=== PATIENT | male | born 1940 | race Caucasian/White ===

== ENCOUNTER 2024-07-18 07:45 | Inpatient (IN) | payer MEDICARE, SELFPAY ==
[2024-07-18] VITALS (11 sets, daily range): BP systolic 100–119; BP diastolic 44–59; PULSE 60–73; RESP 14–20; TEMP 36.7–37.1; O2SAT 93–99; BMI 29.8
--- NOTE | ~2024-07-18 | XR_ITS ---
EXAMINATION: XR chest 1V portable DATE: 07/18/2024 10:06 INDICATION: Cough and cholecystitis TECHNIQUE: frontal view of the chest was obtained. COMPARISON: None FINDINGS: There are few scattered bilateral calcified pulmonary nodules consistent with old granulomatous disea se. Mild bibasilar opacities which appears to include a very small right pleural effusion. No pneumot horax. The cardiomediastinal silhouette is within normal limits for AP technique. T6-T12 posterior sp inal fusion with bilateral vertical bryan and pedicle screw fixation. IMPRESSION: 1. Mild bibasilar opacities which could represent atelectasis or pneumonia with very small right pleu ral effusion. Reviewed, dictated and finalized at location A. IMPRESSION: 1. Mild bibasilar opacities which could represent atelectasis or pneumonia with very small right pleural effusion.
--- NOTE | ~2024-07-18 | MR_ITS ---
EXAMINATION: MR MRCP wo/w con/w 3D wo ind DATE: 07/20/2024 09:24 INDICATION: Cholecystitis TECHNIQUE: Magnetic resonance imaging (MRI) of the abdomen was performed without intravenous contrast . Sequences included coronal T2-weighted SS-FSE, coronal T2-weighted FS SS-FSE, coronal T2-weighted F S FIESTA, axial T2-weighted FS FIESTA, axial T2-weighted FIESTA, sagittal T2-weighted SS-FSE, axial T 1-weighted dual-echo FSPGR, axial T2-weighted SS-FSE, axial T1-weighted LAVA, axial T2-weighted STIR FSE. Thick-slab T2-weighted FRFSE-XL images were obtained for magnetic resonance cholangiopancreatogr aphy (MRCP). Rotating maximum intensity projection 3-D reconstructions of the volumetric data were cr eated by the technologist. COMPARISON: CT dated 07/18/2024 FINDINGS: ABDOMEN MRI: Heart size is normal. No pericardial effusion. Small right and tiny left pleural effusions with assoc iated dependent consolidation likely related to atelectasis in both lower lobes. Liver, pancreas, jessica ateral adrenal glands and kidneys are normal. There are several mildly T2 hyperintense lesions scatte red throughout the spleen the largest measuring 2.0 cm. The 2 largest demonstrate very slow progressi ve enhancement on the postcontrast imaging with the smaller lesions remaining without enhancement thr ough 5 minutes of imaging most consistent with hemangiomas. Multiple small low signal intensity galls tones within the gallbladder which demonstrates prominent wall thickening but which is now decompress ed post recent of a percutaneous cholecystostomy tube which is subtly visible on the dual echo sequen gasper. Visualized portions of bowels are unremarkable. Bladder is normal. No pathologically enlarged ab dominal or pelvic lymphadenopathy. Moderate lumbar spondylosis. There is metallic magnetic field saumya fact associated with the bilateral vertical bryan and pedicle screw fixation for a T6-T12 posterior spi nal fusion. ABDOMEN MRCP: No intra or extra hepatic ductal or ductal dilation. The common bile duct measures up to 3 mm in maxi mal diameter which is normal with no evident filling defects to suggest choledocholithiasis. IMPRESSION: 1. Cholelithiasis and diffuse gallbladder wall thickening consistent with acute cholecystitis with de crease in the degree of gallbladder distention following interval cholecystostomy tube placement. 2. No intra-axial hepatic Doppler evaluation or evident choledocholithiasis. 3. Small right and very small left pleural effusions. Reviewed, dictated and finalized at location A. IMPRESSION: 1. Cholelithiasis and diffuse gallbladder wall thickening consistent with acute cholecystitis with decrease in the degree of gallbladder distention following interval cholecystostomy tube placement. 2. No intra-axial hepatic Doppler evaluation or evident choledocholithiasis. 3. Small right and very small left pleural effusions.
--- NOTE | ~2024-07-18 | US_ITS ---
EXAMINATION: US perc cholecystostomy w imag DATE: 07/19/2024 15:02 INDICATION: Acute cholecystitis TECHNIQUE: The procedure including the risks and benefits was discussed with the patient. Risks discu ssed included bleeding including hemorrhage and bile peritonitis. Oral and written consent were obtai vincenzo. The patient was confirmed to be receiving appropriate antibiotic coverage. The skin overlying t he liver and gallbladder was prepped and draped in usual sterile fashion. Anesthetic was administere d with 1% lidocaine subcutaneously. An 8.5 Fr catheter was inserted into the gallbladder by trocar liliana davila. The metal stiffener and trocar needle were removed, and the pigtail tip was locked. Bile was aspirated and sent for culture. The catheter was stitched to the skin with suture. About equipment a nd a sterile dressing were applied. There were no immediate complications. FINDINGS: The gallbladder is dilated with wall thickening consistent with acute cholecystitis. Ultras ound images demonstrate the catheter within the gallbladder. 50 mL mL brown-colored bile was aspirate d. Final images show the formed pigtail catheter tip in the gallbladder. IMPRESSION: 1. Successful ultrasound-guided cholecystostomy tube placement. 2. 50 mL bile was sent for aerobic, anaerobic, and fungal cultures. 3. The catheter will be managed by Dr. Munoz. A catheter cholangiogram may be performed not less than 48 hours after tube placement if clinically indicated to assess cystic duct patency. If cholecystect isauro is not eventually performed and the infectious episode has resolved, the tube may be removed over a guidewire, preferably not less than 3 weeks after placement to allow time for a mature catheter tr act to form to prevent bile leakage and peritonitis. Reviewed, dictated and finalized at location A. IMPRESSION: 1. Successful ultrasound-guided cholecystostomy tube placement. 2. 50 mL bile was sent for aerobic, anaerobic, and fungal cultures. 3. The catheter will be managed by Dr. Munoz. A catheter cholangiogram may be pe rformed not less than 48 hours after tube placement if clinically indicated to assess cystic duct patency. If cholecystectomy is not eventually performed and the infectious episode has resolved, the tube may be removed over a guidewire, preferably not less than 3 weeks after placement to allow time for a mature ca theter tract to form to prevent bile leakage and peritonitis.
--- NOTE | ~2024-07-18 | US_ITS ---
EXAMINATION: US abdomen limited DATE: 07/18/2024 19:31 INDICATION: Acute cholecystitis. TECHNIQUE: Multiple grayscale and Doppler ultrasound images of the abdomen were obtained. COMPARISON: Chest CT 07/18/2024 FINDINGS: The visualized portions of the head, body, and tail of the pancreas are normal. The liver i s normal without focal lesion. There is normal flow in main portal vein. The gallbladder is distended and contains gallstones. Gallbladder wall thickening is noted. The common duct is normal and measure s 3 mm. IMPRESSION: 1. Acute cholecystitis. Reviewed, dictated and finalized at location A. IMPRESSION: 1. Acute cholecystitis.
--- NOTE | ~2024-07-18 | CT_ITS ---
EXAMINATION:CT diagnostic chest wo con DATE: 07/18/2024 17:28 INDICATION: Pneumonia. TECHNIQUE: Computed tomography (CT) of the chest was performed without intravenous contrast. Automate d exposure control and iterative reconstruction technique were employed. The dose-length product (DLP ) was 554.50 mGy-cm. COMPARISON: Chest single view 07/18/2024, CT abdomen and pelvis 07/17/2024 FINDINGS: Calcified pulmonary nodules and calcified hilar and mediastinal lymph nodes are consistent with old granulomatous disease. There are airspace opacities in right lower lobe. There is a small ri ght pleural effusion with pleural thickening. Cardiomegaly is noted. There are coronary artery calcif ications. No pericardial effusion. There is bilateral gynecomastia. The gallbladder is distended cont ains gallstones. There is fat stranding around the gallbladder. There are changes of posterior fusion procedure in thoracic spine. There are bridging endplate osteophytes at multiple levels in the spine , consistent with diffuse idiopathic skeletal hyperostosis (DISH). IMPRESSION: 1. Airspace opacities in right lower lobe, consistent with atelectasis versus pneumonia. 2. Small right pleural effusion with pleural thickening, likely an exudate. 3. Acute cholecystitis. Reviewed, dictated and finalized at location A. IMPRESSION: 1. Airspace opacities in right lower lobe, consistent with atelectasis versus p neumonia. 2. Small right pleural effusion with pleural thickening, likely an exudate. 3. Acute cholecystitis.
--- NOTE | ~2024-07-18 | XR_ITS ---
CHEST RADIOGRAPH CLINICAL HISTORY: Poor lung sounds, loose cough . COMPARISON: 07/18/2024 TECHNIQUE: Single portable view of the chest. FINDINGS The cardiomediastinal silhouette is partially obscured. Bilateral pleural effusions with adjacent compressive atelectasis, minimally increased from prior li ging, left greater than right. Calcified granulomas within the bilateral lung thornton, unchanged. Fixation hardware within the thoracic spine. IMPRESSION: Bilateral pleural effusions with adjacent compressive atelectasis, minimally increased from prior li ging. No focal infiltrate. Reviewed, dictated and finalized at location A. IMPRESSION: Bilateral pleural effusions with adjacent compressive atelectasis, minimally in creased from prior imaging. No focal infiltrate.
--- NOTE | 2024-07-18 07:43 | ADMGEN ---
This patient, Valentino Haro, was admitted to IMU Room 201-01. Patient/family oriented to hospital policies and general routines including ID bracelet, bed and alarms, visiting hours, pain management, procedures, bathroom and other care routines, personal items, smoking policy, room service/diet, and visiting hours. Information on how to activate the Rapid Response Team has been discussed. Patient/Family are encouraged to report perceived risks to care and to ask questions if they do not understand what they are told or what they should do.
[2024-07-18 10:34] LABS: Hematocrit 38.9 % (42.0-52.0); Hemoglobin 12.4 g/dL (14.0-18.0); Mean Corpuscular HGB Conc 31.9 g/dl (32-36); Mean Corpuscular Hemoglobin 33.1 pg (26-34); Mean Corpuscular Volume 103.7 fl (80-100); Mean Platelet Volume 11.5 fl (7.4-10.4); Platelet Count Result 153 k/mm3 (150-375); Red Blood Count 3.75 M/mm3 (4.6-6.20); Red Cell Distribution Width 14.1 % (11.5-14.5); White Blood Count 12.9 K/mm3 (4.5-10.0)
[2024-07-18 10:45] LABS: Lactic Acid Reflex 3.2 mmol/L (0.7-2.0)
[2024-07-18 10:55] LABS: Albumin Level 3.3 g/dL (3.5-5.1); Alkaline Phosphatase 152 U/L (38-126); Anion Gap 9 mmol/L (4-12); Aspartate Amino Transferase 593 U/L (17-59); Bilirubin,Total 5.2 mg/dL (0.2-1.3); Blood Urea Nitrogen 16 mg/dL (9-20); Calcium 8.5 mg/dL (8.4-10.2); Carbon Dioxide 25 mmol/L (22-30); Chloride 99 mmol/L (98-107); Estimated Glomerular Filt Rate > 60; Glucose 191 mg/dL (65-110); Magnesium 1.9 mg/dL (1.6-2.3); Potassium 4.8 mmol/L (3.4-5.0); Sodium 133 mmol/L (137-145)
[2024-07-18 11:08] LABS: Alanine Aminotransferase 315 U/L (6-50)
[2024-07-18 11:20] LABS: Band Neutrophils Percent 12 % (0-6); Lymphocytes Absolute Manual 0.38 K/mm3 (1.1-4.5); Lymphocytes Percent Manual 3 % (18-44); Monocytes Absolute Manual 1.16 K/mm3 (0.1-0.90); Monocytes Percent Manual 9 % (3-9); Neutrophils Absolute Manual 11.35 K/mm3 (1.3-6.7); Neutrophils Percent Manual 76 % (46-73); Total Cells Counted 100
[2024-07-18 11:21] LABS: Macrocytosis 1+ (NORMAL); Platelet Estimate Adequate (Adequate); Schistocytes None Seen
[2024-07-18] MEDS: SODIUM CHLORIDE 0.9% IV 1,000 ML 75 ML IV CONT (11:31)
[2024-07-18 12:03] LABS: Glucose Point of Care 180 mg/dl (65-105)
[2024-07-18] MEDS: PIPERACILLN/TAZ 3.375GM/NS50ML 3.375 GM/50 ML BAG IVPB ×2 (12:30→16:53)
[2024-07-18 13:31] LABS: Reflex Lactic Acid Yes or No Add Lactic
[2024-07-18 14:19] LABS: Lactic Acid 2.4 mmol/L (0.7-2.0)
--- NOTE | 2024-07-18 15:43 | PM.IMHP ---
H&P: HPI History of Present Illness Date/Time: 07/18/24 15:43 Chief Complaint: abdominal pain Narrative: 84-year-old male past medical history of type 2 diabetes, hypertension, atrial fibrillation, CHF, transferred from another facility on account of acute cholecystitis. Patient was lethargic at the time of this encounter unable to provide a history, but are present and patient started having abdominal pain on Sunday and presented to an outside ER where they evaluated him and sent him home on pain medications. Last night abdominal pain worsened prompting presentation to the ER for proper evaluation and care. evaluation of the transferring facility noted worsening acute cholecystitis patient was given antibiotics transferred to our facility for higher level of care. Patient was lethargic unable to provide review of systems however did note right upper quadrant pain. Review of Systems Review of Systems: Unable to do review of systems due to Lethargy PMFSH Past Medical History Medical History (Updated 07/18/24 @ 15:49 by Rich Rios MD) Type 2 diabetes mellitus without complications Social History Social History Smoking status: Never smoker Alcohol intake: never Substance use: never Substance use type: does not use Do You Feel Safe in your Home?: Yes Lack of Transportation: No Lack of Food: Never True Current Housing: I Have Housing Concerned About Future Housing: Decline to Answer Difficulty Paying Gas/Electric Bills: Decline to Answer Difficulty Paying for Meds: Decline to Answer Currently Unemployed: Decline to Answer Education: Decline to Answer Difficulty w/ Childcare or Family Care: Decline to Answer Spiritual care concerns: No Meds Home Medications and Allergies Home Medications Medication Instructions Recorded Confirmed Type acetaminophen 325 mg tablet (Mapap 650 mg PO Q6H 30 days #240 tabs 07/04/23 07/18/24 Rx (acetaminophen)) losartan 25 mg tablet 50 mg PO DAILY 30 days #60 tabs 07/04/23 07/18/24 Rx pantoprazole 40 mg tablet,delayed 40 mg PO QAM 30 days #30 tabs 07/04/23 07/18/24 Rx release albuterol sulfate 90 mcg/actuation 2 puff inhalation Q6H PRN Wheezing 07/18/24 07/18/24 History aerosol inhaler blood sugar diagnostic (FreeStyle 07/18/24 07/18/24 History Lite Strips) cholecalciferol (vitamin D3) 50 50 mcg PO DAILY 07/18/24 07/18/24 History mcg (2,000 unit) capsule empagliflozin 25 mg tablet 25 mg PO DAILY 07/18/24 07/18/24 History (Jardiance) fluticasone propionate 50 2 spray intranasal DAILY 07/18/24 07/18/24 History mcg/actuation nasal spray,suspension insulin human U-100 NPH-regulr 10 unit subcut Q12H 07/18/24 07/18/24 History 70-30 mix 100 unit/mL subcutaneous susp (Humulin 70/30 U-100 Insulin) ipratropium 0.5 mg-albuterol 3 mg 3 ml inhalation Q6H PRN Shortness 07/18/24 07/18/24 History (2.5 mg base)/3 mL nebulization Of Breath Or Wheezing soln lancets 28 gauge (FreeStyle 07/18/24 07/18/24 History Lancets) metoprolol succinate 25 mg 25 mg PO DAILY 07/18/24 07/18/24 History tablet,extended release 24 hr rivaroxaban 20 mg tablet (Xarelto) 20 mg PO DAILY 07/18/24 07/18/24 History Allergies Allergy/AdvReac Type Severity Reaction Status Date / Time amiodarone Allergy Unknown Verified 07/18/24 09:34 atorvastatin [From Lipitor] Allergy Unknown Verified 07/18/24 09:34 azithromycin Allergy Unknown Verified 07/18/24 09:34 pravastatin Allergy Unknown Verified 07/18/24 09:34 rosuvastatin Allergy Unknown Verified 07/18/24 09:34 Vital Signs Vital Signs - 24 hr 07/18/24 09:00 07/18/24 08:00 07/18/24 08:00 Temperature 98.7 F Pulse Rate 72 67 Respiratory Rate 14 Blood Pressure 100/49 L Pulse Oximetry 99 Oxygen Delivery Room Air 07/18/24 10:00 07/18/24 12:06 07/18/24 12:00 Temperature 98.6 F Pulse Rate 66 60 63 Res
[2024-07-18 18:00] LABS: Glucose Point of Care 156 mg/dl (65-105)
--- NOTE | 2024-07-18 18:17 | PM.IMHP ---
H&P: HPI History of Present Illness Date/Time: 07/18/24 18:17 Chief Complaint: Acute cholecystitis secondary to cholelithiasis Narrative: Patient is a 84-year-old gentleman who was transferred from outside hospital to [facility] because diagnosis of acute cholecystitis secondary cholelithiasis and need for higher level of surgical evaluation and care. Patient apparently brought to the emergency room because he was having weakness and worsening abdominal pain. Imaging at the outside hospital with a CT scan seemed to show acute cholecystitis secondary to cholelithiasis. There is stranding and pericholecystic inflammation. Patient was transferred [facility] and accepted by the hospitalist service. Patient had elevated LFTs and an elevated total bilirubin of 5.2. CT scan of the chest was done [facility] today which showed dilated gallbladder with thickening of the gallbladder wall and pericholecystic stranding the tissues around the gallbladder. The patient is in general poor health. He does have some dementia but does answer some questions. He is able to tell me that he does have pain in the right upper quadrant of the abdomen. Patient is a DNR. He takes Xarelto and his states that his last dosage of Xarelto was yesterday. He has insulin-dependent diabetes mellitus and hypertension and atrial fibrillation. Review of Systems Review of Systems: The remainder of the review of systems to include constitutional, HEENT, cardiovascular, respiratory, GI, , integumentary, musculoskeletal, endocrine, immunologic, hematologic, psychiatric, and neurologic are all negative except for which is mentioned above in the HPI. [facility] Past Medical History Medical History Type 2 diabetes mellitus without complications Social History Social History Smoking status: Never smoker Alcohol intake: never Substance use: never Substance use type: does not use Do You Feel Safe in your Home?: Yes Lack of Transportation: No Lack of Food: Never True Current Housing: I Have Housing Concerned About Future Housing: Decline to Answer Difficulty Paying Gas/Electric Bills: Decline to Answer Difficulty Paying for Meds: Decline to Answer Currently Unemployed: Decline to Answer Education: Decline to Answer Difficulty w/ Childcare or Family Care: Decline to Answer Spiritual care concerns: No Meds Home Medications and Allergies Home Medications Medication Instructions Recorded Confirmed Type acetaminophen 325 mg tablet (Mapap 650 mg PO Q6H 30 days #240 tabs 07/04/23 07/18/24 Rx (acetaminophen)) losartan 25 mg tablet 50 mg PO DAILY 30 days #60 tabs 07/04/23 07/18/24 Rx pantoprazole 40 mg tablet,delayed 40 mg PO QAM 30 days #30 tabs 07/04/23 07/18/24 Rx release albuterol sulfate 90 mcg/actuation 2 puff inhalation Q6H PRN Wheezing 07/18/24 07/18/24 History aerosol inhaler blood sugar diagnostic (FreeStyle 07/18/24 07/18/24 History Lite Strips) cholecalciferol (vitamin D3) 50 50 mcg PO DAILY 07/18/24 07/18/24 History mcg (2,000 unit) capsule empagliflozin 25 mg tablet 25 mg PO DAILY 07/18/24 07/18/24 History (Jardiance) fluticasone propionate 50 2 spray intranasal DAILY 07/18/24 07/18/24 History mcg/actuation nasal spray,suspension insulin human U-100 NPH-regulr 10 unit subcut Q12H 07/18/24 07/18/24 History 70-30 mix 100 unit/mL subcutaneous susp (Humulin 70/30 U-100 Insulin) ipratropium 0.5 mg-albuterol 3 mg 3 ml inhalation Q6H PRN Shortness 07/18/24 07/18/24 History (2.5 mg base)/3 mL nebulization Of Breath Or Wheezing soln lancets 28 gauge (FreeStyle 07/18/24 07/18/24 History Lancets) metoprolol succinate 25 mg 25 mg PO DAILY 07/18/24 07/18/24 History tablet,extended release 24 hr rivaroxaban 20 mg tablet (Xarelto) 20 mg PO DAILY 07/18/24 07/18/24
[2024-07-18 18:56] LABS: Troponin I 0.089 ng/mL (0.000-0.034)
[2024-07-18 19:02] LABS: NT Pro B Type Natriuretic Pept 4760 pg/mL (19.9-100)
[2024-07-18 21:17] LABS: Troponin I 0.088 ng/mL (0.000-0.034)
[2024-07-18] MEDS: MORPHINE SULFATE (*CRX) 2 MG/ML INJ IV PUSH (21:28)
[2024-07-19] VITALS (13 sets, daily range): BP systolic 116–137; BP diastolic 49–63; PULSE 58–76; RESP 16–20; TEMP 36.3–37.2; O2SAT 95–97
[2024-07-19] MEDS: PIPERACILLN/TAZ 3.375GM/NS50ML 3.375 GM/50 ML BAG IVPB ×4 (00:06→18:05)
[2024-07-19 00:09] LABS: Glucose Point of Care 153 mg/dl (65-105)
[2024-07-19 01:40] LABS: Troponin I 0.071 ng/mL (0.000-0.034)
[2024-07-19 04:44] LABS: Hematocrit 37.5 % (42.0-52.0); Hemoglobin 12.3 g/dL (14.0-18.0); Mean Corpuscular HGB Conc 32.8 g/dl (32-36); Mean Corpuscular Hemoglobin 33.8 pg (26-34); Platelet Count Result 130 k/mm3 (150-375); Red Blood Count 3.64 M/mm3 (4.6-6.20); Red Cell Distribution Width 14.4 % (11.5-14.5); White Blood Count 7.9 K/mm3 (4.5-10.0)
[2024-07-19 04:53] LABS: Lactic Acid Reflex 1.4 mmol/L (0.7-2.0)
[2024-07-19] MEDS: SODIUM CHLORIDE 0.9% IV 1,000 ML 120 ML IV CONT ×3 (04:53→21:33)
[2024-07-19 05:03] LABS: Alanine Aminotransferase 232 U/L (6-50); Albumin Level 3.1 g/dL (3.5-5.1); Alkaline Phosphatase 129 U/L (38-126); Anion Gap 9 mmol/L (4-12); Aspartate Amino Transferase 290 U/L (17-59); Blood Urea Nitrogen 27 mg/dL (9-20); Calcium 8.3 mg/dL (8.4-10.2); Carbon Dioxide 25 mmol/L (22-30); Chloride 102 mmol/L (98-107); Estimated CRCL calculation 59 ml/min; Estimated Glomerular Filt Rate > 60; Glucose 132 mg/dL (65-110); Lipase 18 U/L (23-300); Magnesium 2.2 mg/dL (1.6-2.3); Potassium 4.1 mmol/L (3.4-5.0); Sodium 136 mmol/L (137-145)
[2024-07-19 05:12] LABS: Band Neutrophils Percent 13 % (0-6); Eosinophils Absolute Manual 0.07 K/mm3 (0.02-0.50); Eosinophils Percent Manual 1 % (0-4); Lymphocytes Absolute Manual 0.15 K/mm3 (1.1-4.5); Monocytes Absolute Manual 0.23 K/mm3 (0.1-0.90); Monocytes Percent Manual 3 % (3-9); Neutrophils Absolute Manual 7.42 K/mm3 (1.3-6.7); Neutrophils Percent Manual 81 % (46-73); Total Cells Counted 100
[2024-07-19 05:13] LABS: Burr Cells 1+; Platelet Estimate Slightly Decreased (Adequate); Schistocytes None Seen
[2024-07-19 07:48] LABS: INR 1.8; Prothrombin Time 21.6 Seconds (11.1-14.7)
[2024-07-19 07:49] LABS: Partial Thromboplastin Time 48.2 Seconds (22.3-36.8)
--- NOTE | 2024-07-19 11:45 | WPDPN ---
Progress Note: A&P Assessment and Plan (1) Transaminitis: Code(s): R74.01 - Elevation of levels of liver transaminase levels Status: Acute Assessment and Plan: Liver enzymes are decreasing. Total bilirubin is still 5.0. Common bile duct is normal on the abdominal ultrasound and no retained common bile stone is seen on the CT scan. Patient will probably benefit from having MRCP performed after gallbladder has been decompressed from the cholecystostomy tube placement. Gastroenterology consultation is pending. (2) Acute cholecystitis: Code(s): K81.0 - Acute cholecystitis Status: Acute Assessment and Plan: Patient white blood cell count is decreased down to about 8000 today. Continues on Zosyn for IV antibiotics. Pain is about the same he does have generalized peritoneal signs. No fever or tachycardia or hypotension to should suggest sepsis. He is scheduled to have a ultrasound-guided percutaneous cholecystostomy tube placement today in Radiology. It should decompress this gallbladder and hopefully getting the feeling better. Has possible pneumonia on CT of the chest he is on Xarelto for atrial fibrillation. INR is 1.8 today. For now decompression was gallbladder is indicated and possibly think about and cholecystectomy in the future. Continue supportive management and IV antibiotics. Once he has the cystostomy tube in place his pain is better then we can start on clear liquids. Subjective Date/time seen: 07/19/24 11:45 Interval history: Patient without acute changes overnight. Still having right upper quadrant abdominal pain. No nausea or vomiting. No fever no tachycardia. Is still NPO. Abdominal ultrasound done last evening shows thickening of the gallbladder wall with pericholecystic fluid and gallstones consistent with acute cholecystitis. That is concordant with the CT scan findings and his clinical picture. Liver enzymes today are decreasing. Total bilirubin is 5 today down from 5.4 yesterday. GI consultation has been requested and is pending. Exam GI: Other: Abdomen is soft and nondistended. He has moderate pain with some guarding in the right upper quadrant. Gallbladder is not palpable. No generalized peritoneal signs. Objective Data Vital Signs Vital Signs: Vital Signs - 24 hr 07/18/24 12:06 07/18/24 12:00 07/18/24 12:00 Temperature 37.0 C Pulse Rate 60 63 Respiratory Rate 14 Blood Pressure 114/44 L Pulse Oximetry 96 Oxygen Delivery Room Air 07/18/24 14:00 07/18/24 16:00 07/18/24 16:00 Temperature 36.9 C Pulse Rate 68 69 66 Respiratory Rate 14 Blood Pressure 113/45 L Pulse Oximetry 96 Oxygen Delivery 07/18/24 18:00 07/18/24 16:00 07/18/24 19:49 Temperature 36.8 C Pulse Rate 71 73 Respiratory Rate 16 Blood Pressure 113/59 L Pulse Oximetry 95 Oxygen Delivery Room Air 07/18/24 20:00 07/18/24 20:00 07/18/24 22:00 Temperature Pulse Rate 70 72 Respiratory Rate Blood Pressure Pulse Oximetry Oxygen Delivery Room Air 07/18/24 23:56 07/19/24 00:00 07/19/24 00:00 Temperature 36.7 C Pulse Rate 68 68 Respiratory Rate 20 Blood Pressure 119/45 L Pulse Oximetry 93 Oxygen Delivery Room Air 07/19/24 02:00 07/19/24 04:00 07/19/24 04:00 Temperature 37.2 C Pulse Rate 74 76 72 Respiratory Rate 16 Blood Pressure 137/63 Pulse Oximetry 95 Oxygen Delivery 07/19/24 04:00 07/19/24 06:00 07/19/24 07:50 Temperature 36.7 C Pulse Rate 70 72 Respiratory Rate 19 Blood Pressure 125/52 L Pulse Oximetry 96 Oxygen Delivery Room Air Intake/Output Intake/Output: Intake & Output 07/16/24 07/17/24 07/18/24 07/19/24 23:59 23:59 23:59 23:59 Intake Total 1100.0 100 Output Total 500 550 Balance 600.0 -450 Meds/Results Medications: Active Medications Generic Name Dose Route Start Last Admin Trade Name Freq PRN Reason Stop Dose Admin Dextro
--- NOTE | 2024-07-19 12:35 | PM.IMPN ---
Progress Note: A&P Assessment and Plan (1) Acute cholecystitis: Code(s): K81.0 - Acute cholecystitis Status: Acute Plan Acute cholecystitis Imaging from outside hospital reviewed Blood culture, start Zosyn, IV fluid lactic acid resolved NPO, general surgery consulted. Elevated liver anzymes, improving AST 290 from 593, ALT 232 from 315, Bilirubin 5.0 from 5.[address] AP negative for CBD dilatation MRCP recommended by surgery GI consulted , monitor RLL Pneumonia CT Chest showed RLL pneumonia F/u with blood culture Continue Zosyn Follow-up closely Type 2 diabetes Sliding scale insulin with Accu-Cheks Adjust clinical course Atrial fibrillation Hold anticoagulation and titrate home meds with clinical course CHF Titrate medication or clinical course Hypertension Title medication on clinical course DVT prophylaxis subQ Lovenox patient is a DNR Surrogate decisionmaker is . Subjective Date/time seen: 07/19/24 12:35 Interval history: Gen surgery planning percutaneous drainage of gall bladder NO CBD dilation from Imaging studies Gi consulted for possibel MRCP Review of Systems Review of Systems: Unable to do review of systems due to Lethargy Exam Narrative: General: lethargic Eyes: EOMI, PERRLA ENNT External ears normal, Neck is supple, no masses, Respiratory systems: Clear to auscultation Cardiovascular S1, S2, normal rhythm, no murmur, rub, or gallop; no thrill or palpable murmurs on palpation. Gastrointestinal: soft, and non-distended abdomen with no masses; right upper quadrant tenderness. BS present Skin: no rash, lesions, ulcerations, subcutaneous nodules or induration Musculoskeletal: no abnormality and no tenderness, normal ROM Neurologic: Alert and oriented x3, non focal Mental Status Exam: normal affect Objective Data Vital Signs Vital Signs: Vital Signs - 24 hr 07/18/24 14:00 07/18/24 16:00 07/18/24 16:00 Temperature 98.4 F Pulse Rate 68 69 66 Respiratory Rate 14 Blood Pressure 113/45 L Pulse Oximetry 96 Oxygen Delivery 07/18/24 18:00 07/18/24 16:00 07/18/24 19:49 Temperature 98.2 F Pulse Rate 71 73 Respiratory Rate 16 Blood Pressure 113/59 L Pulse Oximetry 95 Oxygen Delivery Room Air 07/18/24 20:00 07/18/24 20:00 07/18/24 22:00 Temperature Pulse Rate 70 72 Respiratory Rate Blood Pressure Pulse Oximetry Oxygen Delivery Room Air 07/18/24 23:56 07/19/24 00:00 07/19/24 00:00 Temperature 98.1 F Pulse Rate 68 68 Respiratory Rate 20 Blood Pressure 119/45 L Pulse Oximetry 93 Oxygen Delivery Room Air 07/19/24 02:00 07/19/24 04:00 07/19/24 04:00 Temperature 99 F Pulse Rate 74 76 72 Respiratory Rate 16 Blood Pressure 137/63 Pulse Oximetry 95 Oxygen Delivery 07/19/24 04:00 07/19/24 06:00 07/19/24 07:50 Temperature 98.1 F Pulse Rate 70 72 Respiratory Rate 19 Blood Pressure 125/52 L Pulse Oximetry 96 Oxygen Delivery Room Air Intake/Output Intake/Output: Intake & Output 07/16/24 07/17/24 07/18/24 07/19/24 23:59 23:59 23:59 23:59 Intake Total 1100.0 100 Output Total 500 550 Balance 600.0 -450 Meds/Results Medications: Active Medications Generic Name Dose Route Start Last Admin Trade Name Freq PRN Reason Stop Dose Admin Dextrose 12.5 gm 07/18/24 15:51 Dextrose 50% 25 Gm/50 Ml Syringe IV PUSH PRN PRN Hypoglycemia Protocol Glucagon 1 mg 07/18/24 15:51 Glucagon For Inj 1 Mg Vial IM PRN PRN Hypoglycemia Protocol Glucose 15 gm 07/18/24 15:51 Glucose Oral Gel 15 Gm Of Glucse In 37.5 Gm Tube PO PRN PRN Hypoglycemia Protocol Sodium Chloride 1,000 mls @ 120 mls/hr 07/18/24 11:05 07/19/24 04:53 Normal Saline Iv IV CONT 120 mls/hr .Q8H20M [place] Administration Piperacillin/Tazobactam/Dextrose 3.375 gm in
[2024-07-19 13:07] LABS: Glucose Point of Care 131 mg/dl (65-105)
--- NOTE | 2024-07-19 16:01 | WPDGICN ---
Assessment and Plan Assessment and plan (1) Acute cholecystitis: Code(s): K81.0 - Acute cholecystitis Status: Acute Assessment and Plan: on iv abx, surgery on board and cholecystostomy tube in place will get mri to assess biliary system trend liver enzymes (2) Elevated liver enzymes: Code(s): R74.8 - Abnormal levels of other serum enzymes Status: Acute Assessment and Plan: get mrcp probably from cholecystitis (3) Atrial fibrillation: Code(s): I48.91 - Unspecified atrial fibrillation Status: Acute Assessment and Plan: xarelto on hold (4) Type 2 diabetes mellitus without complications: Code(s): E11.9 - Type 2 diabetes mellitus without complications Status: Acute (5) Abdominal pain: Code(s): R10.9 - Unspecified abdominal pain Status: Acute GI Consult Note Consult date/time: 07/19/24 16:01 Reason for consult: cholecystitis, elevated liver enzymes HPI: Valentino Haro is a 84 year old male with h/o DM, heart disease on blood thinner transferred to the hospital with new diagnosis of acute cholecystitis after presented at another institution with lethargy, abdominal pain. Also noted elevated liver enzymes with bili 5. He was evaluated by surgery and underwent cholecystostomy tube, he is on antibiotics. His xarelto is on hold, doing better now. Family members at bedside. Review of Systems Constitutional: Constitutional: Reports weakness Eyes: Eyes: Denies blurry vision ENT: Denies nasal congestion Cardiovascular: Cardiovascular: Denies chest pain Respiratory: Respiratory: Denies cough Gastrointestinal: Gastrointestinal: Reports abdominal pain and Reports nausea Genitourinary: Genitourinary: Denies dysuria Musculoskeletal: Musculoskeletal: Denies neck pain Integumentary/Breasts: Skin/Breast: Denies rash Neurologic: Denies Abnormal speech present Psychiatric: Psychiatric: Denies behavioral changes [facility] Past Medical History Medical History (Updated 07/19/24 @ 16:05 by Parish Garcia MD) Abdominal pain Elevated liver enzymes Type 2 diabetes mellitus without complications Social History Social History Smoking status: Never smoker Alcohol intake: never Substance use: never Substance use type: does not use Do You Feel Safe in your Home?: Yes Lack of Transportation: No Lack of Food: Never True Current Housing: I Have Housing Concerned About Future Housing: Decline to Answer Difficulty Paying Gas/Electric Bills: Decline to Answer Difficulty Paying for Meds: Decline to Answer Currently Unemployed: Decline to Answer Education: Decline to Answer Difficulty w/ Childcare or Family Care: Decline to Answer Spiritual care concerns: No Meds Home Medications and Allergies Home Medications Medication Instructions Recorded Confirmed Type acetaminophen 325 mg tablet (Mapap 650 mg PO Q6H 30 days #240 tabs 07/04/23 07/18/24 Rx (acetaminophen)) losartan 25 mg tablet 50 mg PO DAILY 30 days #60 tabs 07/04/23 07/18/24 Rx pantoprazole 40 mg tablet,delayed 40 mg PO QAM 30 days #30 tabs 07/04/23 07/18/24 Rx release albuterol sulfate 90 mcg/actuation 2 puff inhalation Q6H PRN Wheezing 07/18/24 07/18/24 History aerosol inhaler blood sugar diagnostic (FreeStyle 07/18/24 07/18/24 History Lite Strips) cholecalciferol (vitamin D3) 50 50 mcg PO DAILY 07/18/24 07/18/24 History mcg (2,000 unit) capsule empagliflozin 25 mg tablet 25 mg PO DAILY 07/18/24 07/18/24 History (Jardiance) fluticasone propionate 50 2 spray intranasal DAILY 07/18/24 07/18/24 History mcg/actuation nasal spray,suspension insulin human U-100 NPH-regulr 10 unit subcut Q12H 07/18/24 07/18/24 History 70-30 mix 100 unit/mL subcutaneous susp (Humulin 70/30 U-100 Insulin) ipratropium 0.5 mg-albuterol 3 mg 3 ml inhalation Q6H PRN Shortness 10/
[2024-07-19 16:08] LABS: MRSA (PCR) NOT DETECTED (NOT DETECTE)
[2024-07-19 17:59] LABS: Glucose Point of Care 120 mg/dl (65-105)
--- NOTE | 2024-07-19 22:31 | PC.NURSE ---
Return call received from Katarina LOAIZA. ANP made aware of patient compliant of headache and request for Tylenol. OK per Rusty ANP for Tylenol to be ordered.
[2024-07-19 23:41] LABS: Glucose Point of Care 164 mg/dl (65-105)
[2024-07-20] VITALS (18 sets, daily range): BP systolic 128–148; BP diastolic 54–70; PULSE 49–71; RESP 14–20; TEMP 36.2–36.8; O2SAT 94–97
[2024-07-20] MEDS: PIPERACILLN/TAZ 3.375GM/NS50ML 3.375 GM/50 ML BAG IVPB ×5 (00:01→23:38)
[2024-07-20 04:24] LABS: Basophils Percent Auto 0.2 % (0.2-1.2); Eosinophils Absolute Auto 0.1 K/mm3 (0-0.3); Eosinophils Percent Auto 1.7 % (0-4.4); Hematocrit 33.9 % (42.0-52.0); Hemoglobin 11.1 g/dL (14.0-18.0); Immature Granulocyte Absolute 0.02 K/mm3 (0.00-0.031); Immature Granulocyte Percent A 0.3 % (0-0.5); Immature Platelet Fraction Pct 8.9 % (0.9-11.2); Lymphocytes Absolute Auto 0.31 K/mm3 (0.9-3.2); Lymphocytes Percent Auto 5.2 % (18.3-44.2); Mean Corpuscular HGB Conc 32.7 g/dl (32-36); Mean Corpuscular Hemoglobin 33.7 pg (26-34); Mean Platelet Volume 11.7 fl (7.4-10.4); Monocytes Absolute Auto 0.4 K/mm3 (0.1-0.6); Monocytes Percent Auto 6.2 % (2.6-8.5); Neutrophils Absolute Auto 5.2 K/mm3 (1.3-6.7); Neutrophils Percent Auto 86.4 % (45.5-73.1); Platelet Count Result 125 k/mm3 (150-375); Red Blood Count 3.29 M/mm3 (4.6-6.20); Red Cell Distribution Width 14.1 % (11.5-14.5)
[2024-07-20 04:34] LABS: Lactic Acid Reflex 1.1 mmol/L (0.7-2.0)
[2024-07-20 04:35] LABS: Alanine Aminotransferase 155 U/L (6-50); Albumin Level 2.7 g/dL (3.5-5.1); Alkaline Phosphatase 162 U/L (38-126); Anion Gap 10 mmol/L (4-12); Aspartate Amino Transferase 132 U/L (17-59); Bilirubin,Total 4.3 mg/dL (0.2-1.3); Blood Urea Nitrogen 21 mg/dL (9-20); Calcium 8.1 mg/dL (8.4-10.2); Carbon Dioxide 21 mmol/L (22-30); Chloride 102 mmol/L (98-107); Estimated CRCL calculation 74 ml/min; Estimated Glomerular Filt Rate > 60; Glucose 142 mg/dL (65-110); Magnesium 2.2 mg/dL (1.6-2.3); Potassium 4.1 mmol/L (3.4-5.0); Sodium 133 mmol/L (137-145)
[2024-07-20] MEDS: SODIUM CHLORIDE 0.9% IV 1,000 ML 120 ML IV CONT (06:01)
[2024-07-20 07:56] LABS: Glucose Point of Care 124 mg/dl (65-105)
[2024-07-20] MEDS: METOPROLOL SUCCINATE EXT REL 25 MG TABCR PO (09:50)
[2024-07-20] MEDS: PANTOPRAZOLE 40 MG TABLET PO (09:51)
--- NOTE | 2024-07-20 10:20 | WPDGIPROGNO ---
Progress Note: A&P Assessment and Plan (1) Acute cholecystitis: Code(s): K81.0 - Acute cholecystitis Status: Acute Assessment and Plan: treated with cholecystostomy tube, surgery on board given abnormal liver enzymes MRCP was ordered to evaluate biliary system on iv abx (2) Elevated liver enzymes: Code(s): R74.8 - Abnormal levels of other serum enzymes Status: Acute Assessment and Plan: bili high but trending down probably from cholecystitis (3) Abdominal pain: Code(s): R10.9 - Unspecified abdominal pain Status: Acute (4) CHF (congestive heart failure): Code(s): I50.9 - Heart failure, unspecified Status: Acute Subjective Date/time seen: 07/20/24 10:20 Interval history: he just returned from [facility], no major events Review of Systems Review of Systems: All systems reviewed & are unremarkable except as noted in HPI and below Exam Const: General: no acute distress Other: more comfortable today HENMT: Face/Nose/Sinus: Normal nares present Eyes: General: appearance normal, both eyes and all related structures Neck: Neck: supple Resp: Auscultation: clear to auscultation bilaterally Cardio: Rate: regular rate Rhythm: regular rhythm GI: Inspection: non-distended GI Palp: Yes Soft to palpation Other: abdomen less tender, cholecystostomy tube in place Skin: General skin exam: no rashes or lesions noted Neuro: Speech: normal speech Other: awake and alert Extrem: General: normal to inspection Psych: Mental Status: mental status grossly normal Objective Data Vital Signs Vital Signs: Vital Signs - 24 hr 07/19/24 12:00 07/19/24 12:00 07/19/24 14:00 Temperature 98.2 F Pulse Rate 73 65 72 Respiratory Rate 19 Blood Pressure 121/53 L Pulse Oximetry 97 Oxygen Delivery 07/19/24 16:00 07/19/24 16:00 07/19/24 12:00 Temperature 97.9 F Pulse Rate 65 69 Respiratory Rate 19 Blood Pressure 128/55 L Pulse Oximetry 97 Oxygen Delivery Room Air 07/19/24 16:00 07/19/24 18:00 07/19/24 20:00 Temperature 97.4 F L Pulse Rate 66 68 Respiratory Rate 20 Blood Pressure 116/49 L Pulse Oximetry 95 Oxygen Delivery Room Air 07/19/24 20:00 07/20/24 00:00 07/19/24 20:00 Temperature 98 F Pulse Rate 68 70 Respiratory Rate 20 Blood Pressure 130/64 Pulse Oximetry 97 Oxygen Delivery Room Air 07/19/24 22:00 07/20/24 00:00 07/20/24 00:00 Temperature Pulse Rate 58 L 71 Respiratory Rate Blood Pressure Pulse Oximetry Oxygen Delivery Room Air 07/20/24 02:00 07/20/24 04:00 07/20/24 04:00 Temperature Pulse Rate 67 66 Respiratory Rate Blood Pressure Pulse Oximetry Oxygen Delivery Room Air 07/20/24 04:00 07/20/24 06:00 07/20/24 07:10 Temperature 98.2 F 98 F Pulse Rate 70 62 64 Respiratory Rate 18 18 Blood Pressure 129/56 L 140/57 L Pulse Oximetry 94 96 Oxygen Delivery 07/20/24 09:50 Temperature Pulse Rate 67 Respiratory Rate Blood Pressure Pulse Oximetry Oxygen Delivery Intake/Output Intake/Output: Intake & Output 07/17/24 07/18/24 07/19/24 07/20/24 23:59 23:59 23:59 23:59 Intake Total 1100.0 2726 1600 Output Total 915 679 1484 Balance 600.0 1776 540 Meds/Results Medications: Active Medications Generic Name Dose Route Start Last Admin Trade Name Freq PRN Reason Stop Dose Admin Dextrose 12.5 gm 07/18/24 15:51 Dextrose 50% 25 Gm/50 Ml Syringe IV PUSH PRN PRN Hypoglycemia Protocol Glucagon 1 mg 07/18/24 15:51 Glucagon For Inj 1 Mg Vial IM PRN PRN Hypoglycemia Protocol Glucose 15 gm 07/18/24 15:51 Glucose Oral Gel 15 Gm Of Glucse In 37.5 Gm Tube PO PRN PRN Hypoglycemia Protocol Sodium Chloride 1,000 mls @ 120 mls/hr 07/18/24 11:05 07/20/24 06:01 Normal Saline Iv IV CONT 120 mls/hr .Q8H20M [facility] Administration Pipe
--- NOTE | 2024-07-20 11:26 | WPDPN ---
Progress Note: A&P Assessment and Plan (1) Transaminitis: Code(s): R74.01 - Elevation of levels of liver transaminase levels Status: Acute Assessment and Plan: Liver enzymes are decreasing. It was also decreasing. MRCP results pending. May have been due to the acute cholecystitis with passage of common bile duct stone. (2) Acute cholecystitis: Code(s): K81.0 - Acute cholecystitis Status: Acute Assessment and Plan: Improving with decompression the gallbladder with image guided cholecystostomy tube placement. Continue IV antibiotics for now. Okay for a diabetic diet as long as they live increasing pain or nausea. Will continue non operative management for the gallbladder at this time. Can have further discussions about interval cholecystectomy in the future depending on his medical status. Subjective Date/time seen: 07/20/24 11:26 Interval history: Seems to be doing better today. He had image guided cholecystostomy tube placed yesterday in Radiology. Bile has been sent for Gram stain and culture. He is tolerating a diabetic diet at this time. States his pain is much better. GI consultation has been done. He got an MRCP this morning to look as bile ducts due to his transaminitis and high bilirubin. Results are pending on the MRCP. His total bilirubin is down to 4 today. Other LFTs are also decreasing. Exam GI: Other: Abdomen is soft and nondistended. Right upper quadrant cholecystostomy tube in place. Dressing is dry. Output from the tube is nonpurulent and bloody bile. Objective Data Vital Signs Vital Signs: Vital Signs - 24 hr 07/19/24 12:00 07/19/24 12:00 07/19/24 14:00 Temperature 36.8 C Pulse Rate 73 65 72 Respiratory Rate 19 Blood Pressure 121/53 L Pulse Oximetry 97 Oxygen Delivery 07/19/24 16:00 07/19/24 16:00 07/19/24 12:00 Temperature 36.6 C Pulse Rate 65 69 Respiratory Rate 19 Blood Pressure 128/55 L Pulse Oximetry 97 Oxygen Delivery Room Air 07/19/24 16:00 07/19/24 18:00 07/19/24 20:00 Temperature 36.3 C L Pulse Rate 66 68 Respiratory Rate 20 Blood Pressure 116/49 L Pulse Oximetry 95 Oxygen Delivery Room Air 07/19/24 20:00 07/20/24 00:00 07/19/24 20:00 Temperature 36.6 C Pulse Rate 68 70 Respiratory Rate 20 Blood Pressure 130/64 Pulse Oximetry 97 Oxygen Delivery Room Air 07/19/24 22:00 07/20/24 00:00 07/20/24 00:00 Temperature Pulse Rate 58 L 71 Respiratory Rate Blood Pressure Pulse Oximetry Oxygen Delivery Room Air 07/20/24 02:00 07/20/24 04:00 07/20/24 04:00 Temperature Pulse Rate 67 66 Respiratory Rate Blood Pressure Pulse Oximetry Oxygen Delivery Room Air 07/20/24 04:00 07/20/24 06:00 07/20/24 07:10 Temperature 36.8 C 36.6 C Pulse Rate 70 62 64 Respiratory Rate 18 18 Blood Pressure 129/56 L 140/57 L Pulse Oximetry 94 96 Oxygen Delivery 07/20/24 09:50 07/20/24 08:00 07/20/24 10:00 Temperature Pulse Rate 67 61 67 Respiratory Rate Blood Pressure Pulse Oximetry Oxygen Delivery 07/20/24 08:00 Temperature Pulse Rate Respiratory Rate Blood Pressure Pulse Oximetry Oxygen Delivery Room Air Intake/Output Intake/Output: Intake & Output 07/17/24 07/18/24 07/19/24 07/20/24 23:59 23:59 23:59 23:59 Intake Total 1100.0 2726 1840 Output Total 062 771 7594 Balance 600.0 1776 780 Meds/Results Medications: Active Medications Generic Name Dose Route Start Last Admin Trade Name Freq PRN Reason Stop Dose Admin Dextrose 12.5 gm 07/18/24 15:51 Dextrose 50% 25 Gm/50 Ml Syringe IV PUSH PRN PRN Hypoglycemia Protocol Glucagon 1 mg 07/18/24 15:51 Glucagon For Inj 1 Mg Vial IM PRN PRN Hypoglycemia Protocol Glucose 15 gm 07/18/24 15:51 Glucose Oral Gel 15 Gm Of Glucse In 37.5 Gm Tube PO PRN PRN Hypoglycemia Protocol So
[2024-07-20 11:48] LABS: Glucose Point of Care 156 mg/dl (65-105)
--- NOTE | 2024-07-20 14:23 | PM.IMPN ---
Progress Note: A&P Assessment and Plan (1) Acute cholecystitis: Code(s): K81.0 - Acute cholecystitis Status: Acute Plan Acute cholecystitis on PERC drainage of gall bladder Blood culture, continue Zosyn lactic acid resolved Gen surgery consulted Elevated liver anzymes,resolving AST 155 from 593, ALT 132 from 315, Bilirubin 4.3from 5.[address] AP negative for CBD dilatation MRCP recommended by surgery GI consulted , monitor RLL Pneumonia CT Chest showed RLL pneumonia F/u with blood culture Continue Zosyn Follow-up closely Type 2 diabetes Sliding scale insulin with Accu-Cheks Adjust clinical course Atrial fibrillation Hold anticoagulation and titrate home meds with clinical course CHF Titrate medication or clinical course Hypertension Title medication on clinical course DVT prophylaxis subQ Lovenox patient is a DNR Surrogate decisionmaker is . Subjective Date/time seen: 07/20/24 14:23 Interval history: Patient comfortable at bedside perc gall bladder drain in palce MRCP pending cultures pending Review of Systems Review of Systems: Unable to do review of systems due to Lethargy Exam Narrative: General: lethargic Eyes: EOMI, PERRLA ENNT External ears normal, Neck is supple, no masses, Respiratory systems: Clear to auscultation Cardiovascular S1, S2, normal rhythm, no murmur, rub, or gallop; no thrill or palpable murmurs on palpation. Gastrointestinal: soft, and non-distended abdomen with no masses; right upper quadrant tenderness resolving . BS present, Perc drain in place Skin: no rash, lesions, ulcerations, subcutaneous nodules or induration Musculoskeletal: no abnormality and no tenderness, normal ROM Neurologic: Alert and oriented x3, non focal Mental Status Exam: normal affect Objective Data Vital Signs Vital Signs: Vital Signs - 24 hr 07/19/24 16:00 07/19/24 16:00 07/19/24 16:00 Temperature 97.9 F Pulse Rate 65 69 Respiratory Rate 19 Blood Pressure 128/55 L Pulse Oximetry 97 Oxygen Delivery Room Air 07/19/24 18:00 07/19/24 20:00 07/19/24 20:00 Temperature 97.4 F L Pulse Rate 66 68 Respiratory Rate 20 Blood Pressure 116/49 L Pulse Oximetry 95 Oxygen Delivery Room Air 07/20/24 00:00 07/19/24 20:00 07/19/24 22:00 Temperature 98 F Pulse Rate 68 70 58 L Respiratory Rate 20 Blood Pressure 130/64 Pulse Oximetry 97 Oxygen Delivery 07/20/24 00:00 07/20/24 00:00 07/20/24 02:00 Temperature Pulse Rate 71 67 Respiratory Rate Blood Pressure Pulse Oximetry Oxygen Delivery Room Air 07/20/24 04:00 07/20/24 04:00 07/20/24 04:00 Temperature 98.2 F Pulse Rate 66 70 Respiratory Rate 18 Blood Pressure 129/56 L Pulse Oximetry 94 Oxygen Delivery Room Air 07/20/24 06:00 07/20/24 07:10 07/20/24 09:50 Temperature 98 F Pulse Rate 62 64 67 Respiratory Rate 18 Blood Pressure 140/57 L Pulse Oximetry 96 Oxygen Delivery 07/20/24 08:00 07/20/24 10:00 07/20/24 08:00 Temperature Pulse Rate 61 67 Respiratory Rate Blood Pressure Pulse Oximetry Oxygen Delivery Room Air 07/20/24 11:33 07/20/24 08:12 07/20/24 12:00 Temperature 98.2 F 98.2 F Pulse Rate 54 L 67 59 L Respiratory Rate 18 20 Blood Pressure 128/54 L 128/62 Pulse Oximetry 97 96 Oxygen Delivery 07/20/24 14:00 07/20/24 12:00 Temperature Pulse Rate 56 L Respiratory Rate Blood Pressure Pulse Oximetry Oxygen Delivery Room Air Intake/Output Intake/Output: Intake & Output 07/17/24 07/18/24 07/19/24 07/20/24 23:59 23:59 23:59 23:59 Intake Total 1100.0 2726 1890 Output Total 395 206 5823 Balance 600.0 1776 430 Meds/Results Medications: Active Medications Generic Name Dose Route Start Last Admin Trade Name Freq PRN Reason Stop Dose Admin Dextrose 12.5 gm 07/18/24 15:51 Dextrose 5
[2024-07-20 17:02] LABS: Glucose Point of Care 123 mg/dl (65-105)
[2024-07-20 20:24] LABS: Glucose Point of Care 147 mg/dl (65-105)
[2024-07-20] MEDS: guaiFENesin/DEXTROMETHORPHAN 10 ML UDC 5 ML PO (20:57)
[2024-07-21] VITALS (17 sets, daily range): BP systolic 133–148; BP diastolic 61–68; PULSE 47–71; RESP 16–24; TEMP 36.3–36.5; O2SAT 96–99
--- NOTE | 2024-07-21 | ECHO_ITS ---
Patient Info Name: Valentino Haro Age: 84 years : 1940 Gender: Male Ht: 71 in Wt: 216 lbs BSA: 2.24 m2 HR: 49 bpm BP: 135 / 61 mmHg Heart Rhythm: Atrial Fibrillation Technical Quality: Fair Exam Date: 07/21/2024 10:53 AM Exam Location: Echo Lab Patient Status: Inpatient Admit Date: 07/20/2024 Staff Ordering Physician: Rich Rios MD E D Tech: Louisa Gaffney MADYSON Attending Provider: Rich Rios MD Exam Type: CA echo doppler color flow Study Info Indications - Elevated Troponins Complete two-dimensional, color flow and Doppler transthoracic echocardiogram is performed. Summary 1. Complete two-dimensional, color flow and Doppler transthoracic echocardiogram is performed. 2. Mild left ventricular hypertrophy with vigorous systolic function. 3. Significant biatrial dilation. 4. Mild mitral and tricuspid regurgitation. 5. Atrial fibrillation. 6. Sclerotic aortic valve with well maintained leaflet separation. Left Ventricle Left ventricular chamber dimension is normal. Left ventricular systolic function is normal, estimated at 65-70%. There is mild concentric increased left ventricular wall thickness. The left ventricular diastolic function is grade I diastolic dysfunction. Right Ventricle Right ventricular chamber dimension is mildly enlarged. Left Atria Left atrial chamber dimension is moderately enlarged. Right Atria Right atrial chamber dimension is moderately enlarged. Aortic Valve The aortic valve is trileaflet. There is mild aortic valve sclerosis. Pulmonic Valve The pulmonic valve is not well visualized. Mitral Valve The mitral valve has normal leaflets. There is trace mitral valve regurgitation. Tricuspid Valve The tricuspid valve leaflets are normal. There is mild tricuspid valve regurgitation. Pericardium/Pleural The pericardium appears normal. Aorta The aortic root size at the sinus of Valsalva is normal. Left Ventricular Outflow Tract Name Value Normal LVOT 2D LVOT Diameter 2.1 cm LVOT Doppler LVOT Peak Gradient 2 mmHg LVOT Mean Gradient 1 mmHg LVOT VTI 14 cm LVOT VTI/AV VTI Ratio 0.4 LVOT Stroke Volume 46 ml LVOT CO 2.4 l/min LVOT CI 1.1 l/min/m2 Pulmonic Valve Name Value Normal PV Doppler PV Peak Gradient 2 mmHg PV Regurgitation Doppler ME Peak End Diastolic Velocity 146 cm/s Mitral Valve Name Value Normal MV Doppler
[2024-07-21 05:35] LABS: Basophils Percent Auto 0.3 % (0.2-1.2); Eosinophils Absolute Auto 0.2 K/mm3 (0-0.3); Eosinophils Percent Auto 3.5 % (0-4.4); Hemoglobin 11.7 g/dL (14.0-18.0); Immature Granulocyte Absolute 0.05 K/mm3 (0.00-0.031); Immature Granulocyte Percent A 0.9 % (0-0.5); Immature Platelet Fraction Pct 9.8 % (0.9-11.2); Lymphocytes Absolute Auto 0.62 K/mm3 (0.9-3.2); Lymphocytes Percent Auto 10.8 % (18.3-44.2); Mean Corpuscular HGB Conc 32.5 g/dl (32-36); Mean Corpuscular Hemoglobin 33.7 pg (26-34); Mean Corpuscular Volume 103.7 fl (80-100); Mean Platelet Volume 11.9 fl (7.4-10.4); Monocytes Absolute Auto 0.4 K/mm3 (0.1-0.6); Monocytes Percent Auto 7.7 % (2.6-8.5); Neutrophils Absolute Auto 4.4 K/mm3 (1.3-6.7); Neutrophils Percent Auto 76.8 % (45.5-73.1); Platelet Count Result 135 k/mm3 (150-375); Red Blood Count 3.47 M/mm3 (4.6-6.20); Red Cell Distribution Width 14.1 % (11.5-14.5); White Blood Count 5.8 K/mm3 (4.5-10.0)
[2024-07-21] MEDS: PIPERACILLN/TAZ 3.375GM/NS50ML 3.375 GM/50 ML BAG IVPB (05:37)
[2024-07-21 05:50] LABS: Alanine Aminotransferase 121 U/L (6-50); Albumin Level 2.9 g/dL (3.5-5.1); Alkaline Phosphatase 190 U/L (38-126); Anion Gap 11 mmol/L (4-12); Aspartate Amino Transferase 80 U/L (17-59); Bilirubin,Total 2.9 mg/dL (0.2-1.3); Blood Urea Nitrogen 18 mg/dL (9-20); Calcium 8.5 mg/dL (8.4-10.2); Carbon Dioxide 21 mmol/L (22-30); Chloride 101 mmol/L (98-107); Estimated CRCL calculation 85 ml/min; Estimated Glomerular Filt Rate > 60; Glucose 114 mg/dL (65-110); Magnesium 2.3 mg/dL (1.6-2.3); Potassium 4.2 mmol/L (3.4-5.0); Sodium 133 mmol/L (137-145)
[2024-07-21 07:35] LABS: Glucose Point of Care 116 mg/dl (65-105)
[2024-07-21] MEDS: PANTOPRAZOLE 40 MG TABLET PO (09:39)
[2024-07-21] MEDS: guaiFENesin/DEXTROMETHORPHAN 10 ML UDC 5 ML PO ×2 (09:40→19:49)
--- NOTE | 2024-07-21 09:56 | PCNFU ---
Nutrition Follow-Up Complete: Inadequate oral intake related to NPO, altered GI function as evidenced by NPO Goal:Diet advancement Improved PO intake when diet is advanced Pt is meeting goal. New goal of 75% or greater intake to continue. Pt current nutrition is Diabetic, Glucerna shakes BID. Nutrition recommendation: continue with current plan of care Last recorded weight is 101 kg. Bowel Motility: +BM 07/20 Labs Reviewed: Hgb:11.7, HCT:36, Alb:2.9, NA:133 Meds Noted: novolog, protonix Skin: no skin issues noted Additional Notes: Pt diet advanced to diabetic consistent carb, intake 100% at this time, Glucerna shakes BID in place. Glucose well controlled. Agree with orders. Monitoring diet orders, weights, labs, intakes, plan of care Follow up in 7 days
[2024-07-21 11:40] LABS: Glucose Point of Care 141 mg/dl (65-105)
[2024-07-21] MEDS: levoFLOXacin 750 MG TABLET PO (12:34)
--- NOTE | 2024-07-21 12:36 | PM.PNGS ---
Progress Note: A&P Assessment and Plan (1) Transaminitis: Code(s): R74.01 - Elevation of levels of liver transaminase levels Status: Acute Assessment and Plan: Liver enzymes trending down with total bilirubin at 2.9 today. MRCP showed no choledocholithiasis. Significant LFT elevation was likely related to the acute cholecystitis with passage of common bile duct stone. (2) Acute cholecystitis: Code(s): K81.0 - Acute cholecystitis Status: Acute Assessment and Plan: Improving with decompression of the gallbladder with image-guided cholecystostomy tube placement. Continue IV antibiotics for now. He is tolerating a diabetic diet without any issues. Will continue non operative management for the gallbladder at this time. Can have further discussions about interval cholecystectomy in the future depending on his medical status. Plan I have discussed the patient's case and plan of care with Dr. Munoz. Subjective Subjective Date/Time Seen: 07/21/24 12:36 Interval history: This is an 84-year-old man who was transferred to [facility] from [place] for acute cholecystitis, elevated LFTs. Chart reviewed. He is status post cholecystostomy tube placement in Radiology. White blood cell count normal. LFTs are trending down. Total bilirubin 2.9 today. MRCP done this morning that shows no choledocholithiasis. Patient continues to improve. He reports no abdominal pain this morning. He is tolerating a diabetic diet. No other complaints at this time. Exam Const: General: comfortable and no acute distress Orientation/consciousness: patient oriented x3 GI: Inspection: non-distended and other (Cholecystostomy tube with normal-appearing bilious drainage, no purulence ) GI Palp: Yes Soft to palpation, Yes Tenderness to palpation present (GI) (Very mild tenderness near the cholecystostomy tube in RUQ), No Guarding due to palpation present (GI) and No Rebound tenderness present Percussion: Yes normal to percussion Auscultation: normal bowel sounds Objective Data Vital Signs Vital Signs: Vital Signs - 24 hr 07/20/24 14:00 07/20/24 16:00 07/20/24 16:00 Temperature 98.2 F Pulse Rate 56 L 51 L 53 L Respiratory Rate 14 Blood Pressure 130/59 L Pulse Oximetry 95 Oxygen Delivery 07/20/24 16:00 07/20/24 18:00 07/20/24 19:51 Temperature 98.2 F Pulse Rate 56 L 50 L Respiratory Rate 18 Blood Pressure 148/63 H Pulse Oximetry 97 Oxygen Delivery Room Air 07/20/24 20:00 07/20/24 23:58 07/21/24 00:00 Temperature 97.2 F L Pulse Rate 49 L Respiratory Rate 16 Blood Pressure 139/70 Pulse Oximetry 97 Oxygen Delivery Room Air Room Air 07/20/24 20:00 07/20/24 22:00 07/21/24 00:00 Temperature Pulse Rate 57 L 54 L 51 L Respiratory Rate Blood Pressure Pulse Oximetry Oxygen Delivery 07/21/24 02:00 07/21/24 04:00 07/21/24 04:00 Temperature 97.4 F L Pulse Rate 56 L 55 L 48 L Respiratory Rate 16 Blood Pressure 135/61 Pulse Oximetry 97 Oxygen Delivery 07/21/24 06:00 07/21/24 04:00 07/21/24 08:11 Temperature 97.3 F L Pulse Rate 49 L 51 L Respiratory Rate 20 Blood Pressure 148/66 H Pulse Oximetry 99 Oxygen Delivery Room Air 07/21/24 09:42 07/21/24 08:00 07/21/24 10:00 Temperature Pulse Rate 47 L 52 L 54 L Respiratory Rate Blood Pressure Pulse Oximetry Oxygen Delivery 07/21/24 11:52 Temperature 97.4 F L Pulse Rate 71 Respiratory Rate 24 H Blood Pressure 133/64 Pulse Oximetry 98 Oxygen Delivery Intake/Output Intake/Output: Intake & Output 07/18/24 07/19/24 07/20/24 07/21/24 23:59 23:59 23:59 23:59 Intake Total 1100.0 2726 2470 680 Output Total 393 156 1959 570 Balance 600.0 1776 920 110 Meds/Results Medications: Active Medications Generic Name Dose Route Start Last Admin Trade Name Freq PRN Reason Stop Dose Admin Dextrose 12.5 gm 07/18/24 15:51 Dextrose
--- NOTE | 2024-07-21 12:52 | PM.IMPN ---
Progress Note: A&P Assessment and Plan (1) Acute cholecystitis: Code(s): K81.0 - Acute cholecystitis Status: Acute Plan Acute cholecystitis on PERC drainage of gall bladder Blood culture, continue Zosyn, changed to levaquin and Flagyl lactic acid resolved tolerating diet Gen surgery noted outpatient follow up for cholecystectomy. Elevated liver enzymes, resolving AST 80 from 593, ALT 121 from 315, Bilirubin 2.9 from 5.[address] AP negative for CBD dilatation MRCP MRCP showed acute cholecystitis and no CBD dilatation GI following RLL Pneumonia CT Chest showed RLL pneumonia F/u with blood culture Continue Levaquin adn Flagyl, total of 7 days Follow-up closely Type 2 diabetes Sliding scale insulin with Accu-Cheks Adjust clinical course Atrial fibrillation restart Anticoagulation and metoprolol CHF Titrate medication or clinical course Hypertension Title medication with clinical course DVT prophylaxis subQ Lovenox patient is a DNR Surrogate decision maker is . Subjective Date/time seen: 07/21/24 12:52 Interval history: Patient comfortable at bedside and Gen surgery noted they will consider Cholecystectomy in the future Now patient is on oral antibiotics and in PErc drainage Evaluating for possible placement from where he will continue follow up with Gen Surgery Review of Systems Review of Systems: Unable to do review of systems due to Lethargy Exam Narrative: General: lethargic Eyes: EOMI, PERRLA ENNT External ears normal, Neck is supple, no masses, Respiratory systems: Clear to auscultation Cardiovascular S1, S2, normal rhythm, no murmur, rub, or gallop; no thrill or palpable murmurs on palpation. Gastrointestinal: soft, and non-distended abdomen with no masses; right upper quadrant tenderness resolving . BS present, Perc drain in place Skin: no rash, lesions, ulcerations, subcutaneous nodules or induration Musculoskeletal: no abnormality and no tenderness, normal ROM Neurologic: Alert and oriented x3, non focal Mental Status Exam: normal affect Objective Data Vital Signs Vital Signs: Vital Signs - 24 hr 07/20/24 14:00 07/20/24 16:00 07/20/24 16:00 Temperature 98.2 F Pulse Rate 56 L 51 L 53 L Respiratory Rate 14 Blood Pressure 130/59 L Pulse Oximetry 95 Oxygen Delivery 07/20/24 16:00 07/20/24 18:00 07/20/24 19:51 Temperature 98.2 F Pulse Rate 56 L 50 L Respiratory Rate 18 Blood Pressure 148/63 H Pulse Oximetry 97 Oxygen Delivery Room Air 07/20/24 20:00 07/20/24 23:58 07/21/24 00:00 Temperature 97.2 F L Pulse Rate 49 L Respiratory Rate 16 Blood Pressure 139/70 Pulse Oximetry 97 Oxygen Delivery Room Air Room Air 07/20/24 20:00 07/20/24 22:00 07/21/24 00:00 Temperature Pulse Rate 57 L 54 L 51 L Respiratory Rate Blood Pressure Pulse Oximetry Oxygen Delivery 07/21/24 02:00 07/21/24 04:00 07/21/24 04:00 Temperature 97.4 F L Pulse Rate 56 L 55 L 48 L Respiratory Rate 16 Blood Pressure 135/61 Pulse Oximetry 97 Oxygen Delivery 07/21/24 06:00 07/21/24 04:00 07/21/24 08:11 Temperature 97.3 F L Pulse Rate 49 L 51 L Respiratory Rate 20 Blood Pressure 148/66 H Pulse Oximetry 99 Oxygen Delivery Room Air 07/21/24 09:42 07/21/24 08:00 07/21/24 10:00 Temperature Pulse Rate 47 L 52 L 54 L Respiratory Rate Blood Pressure Pulse Oximetry Oxygen Delivery 07/21/24 11:52 Temperature 97.4 F L Pulse Rate 71 Respiratory Rate 24 H Blood Pressure 133/64 Pulse Oximetry 98 Oxygen Delivery Intake/Output Intake/Output: Intake & Output 07/18/24 07/19/24 07/20/24 07/21/24 23:59 23:59 23:59 23:59 Intake Total 1100.0 2726 2470 680 Output Total 915 209 5374 570 Balance 600.0 1776 920 110 Meds/Results Medications: Active Medications Generic Name Dose Route Start Last Admin
--- NOTE | 2024-07-21 13:31 | WPDGIPROGNO ---
Progress Note: A&P Assessment and Plan (1) Acute cholecystitis: Code(s): K81.0 - Acute cholecystitis Status: Acute Assessment and Plan: treated with cholecystostomy tube, surgery on board on iv abx mrcp reviewed, normal bile duct, no need of ercp timing of cholecystectomy per surgery team will follow as needed (2) Elevated liver enzymes: Code(s): R74.8 - Abnormal levels of other serum enzymes Status: Acute Assessment and Plan: bili is trending down probably from cholecystitis (3) Abdominal pain: Code(s): R10.9 - Unspecified abdominal pain Status: Acute Assessment and Plan: mild pain, this has improved (4) CHF (congestive heart failure): Code(s): I50.9 - Heart failure, unspecified Status: Acute Subjective Date/time seen: 07/21/24 13:31 Interval history: abdominal pain is similar, he is comfortable Review of Systems Review of Systems: All systems reviewed & are unremarkable except as noted in HPI and below Exam Const: General: comfortable and no acute distress Orientation/consciousness: patient oriented x3 HENMT: Face/Nose/Sinus: Normal nares present Eyes: General: appearance normal, both eyes and all related structures Neck: Neck: supple Resp: Effort & Inspection: normal respiratory effort Cardio: Rate: regular rate GI: Inspection: non-distended and other (Cholecystostomy tube with normal-appearing bilious drainage, no purulence ) GI Palp: Yes Soft to palpation, Yes Tenderness to palpation present (GI) (Very mild tenderness near the cholecystostomy tube in RUQ), No Guarding due to palpation present (GI) and No Rebound tenderness present Percussion: Yes normal to percussion Auscultation: normal bowel sounds Skin: General skin exam: no rashes or lesions noted Neuro: Speech: normal speech Motor exam (neuro): 5/5 motor strength present throughout Extrem: General: normal to inspection Psych: Mental Status: mental status grossly normal Objective Data Vital Signs Vital Signs: Vital Signs - 24 hr 07/20/24 14:00 07/20/24 16:00 07/20/24 16:00 Temperature 98.2 F Pulse Rate 56 L 51 L 53 L Respiratory Rate 14 Blood Pressure 130/59 L Pulse Oximetry 95 Oxygen Delivery 07/20/24 16:00 07/20/24 18:00 07/20/24 19:51 Temperature 98.2 F Pulse Rate 56 L 50 L Respiratory Rate 18 Blood Pressure 148/63 H Pulse Oximetry 97 Oxygen Delivery Room Air 07/20/24 20:00 07/20/24 23:58 07/21/24 00:00 Temperature 97.2 F L Pulse Rate 49 L Respiratory Rate 16 Blood Pressure 139/70 Pulse Oximetry 97 Oxygen Delivery Room Air Room Air 07/20/24 20:00 07/20/24 22:00 07/21/24 00:00 Temperature Pulse Rate 57 L 54 L 51 L Respiratory Rate Blood Pressure Pulse Oximetry Oxygen Delivery 07/21/24 02:00 07/21/24 04:00 07/21/24 04:00 Temperature 97.4 F L Pulse Rate 56 L 55 L 48 L Respiratory Rate 16 Blood Pressure 135/61 Pulse Oximetry 97 Oxygen Delivery 07/21/24 06:00 07/21/24 04:00 07/21/24 08:11 Temperature 97.3 F L Pulse Rate 49 L 51 L Respiratory Rate 20 Blood Pressure 148/66 H Pulse Oximetry 99 Oxygen Delivery Room Air 07/21/24 09:42 07/21/24 08:00 07/21/24 10:00 Temperature Pulse Rate 47 L 52 L 54 L Respiratory Rate Blood Pressure Pulse Oximetry Oxygen Delivery 07/21/24 11:52 Temperature 97.4 F L Pulse Rate 71 Respiratory Rate 24 H Blood Pressure 133/64 Pulse Oximetry 98 Oxygen Delivery Intake/Output Intake/Output: Intake & Output 07/18/24 07/19/24 07/20/24 07/21/24 23:59 23:59 23:59 23:59 Intake Total 1100.0 2726 2470 680 Output Total 972 928 6498 570 Balance 600.0 1776 920 110 Meds/Results Medications: Active Medications Generic Name Dose Route Start Last Admin Trade Name Freq PRN Reason Stop Dose Admin Dextrose 12.5 gm 07/18/24 15:51 Dextrose 50% 25 Gm/50 Ml Syringe IV PUSH
[2024-07-21] MEDS: metroNIDAZOLE 500 MG TABLET PO ×2 (14:51→21:28)
[2024-07-21 16:42] LABS: Glucose Point of Care 208 mg/dl (65-105)
[2024-07-21 18:24] LABS: Glucose Point of Care 171 mg/dl (65-105)
[2024-07-21] MEDS: RIVAROXABAN 20 MG TABLET PO (18:28)
[2024-07-21 21:16] LABS: Glucose Point of Care 186 mg/dl (65-105)
[2024-07-22] VITALS (16 sets, daily range): BP systolic 125–151; BP diastolic 62–72; PULSE 61–73; RESP 12–20; TEMP 36.3–36.6; O2SAT 97–99
[2024-07-22 05:36] LABS: Basophils Percent Auto 0.3 % (0.2-1.2); Eosinophils Absolute Auto 0.2 K/mm3 (0-0.3); Eosinophils Percent Auto 2.9 % (0-4.4); Hematocrit 34.6 % (42.0-52.0); Hemoglobin 11.5 g/dL (14.0-18.0); Immature Granulocyte Absolute 0.09 K/mm3 (0.00-0.031); Immature Granulocyte Percent A 1.4 % (0-0.5); Lymphocytes Absolute Auto 0.66 K/mm3 (0.9-3.2); Lymphocytes Percent Auto 10.5 % (18.3-44.2); Mean Corpuscular HGB Conc 33.2 g/dl (32-36); Mean Corpuscular Hemoglobin 33.2 pg (26-34); Mean Platelet Volume 12.1 fl (7.4-10.4); Monocytes Absolute Auto 0.5 K/mm3 (0.1-0.6); Monocytes Percent Auto 8.4 % (2.6-8.5); Neutrophils Absolute Auto 4.8 K/mm3 (1.3-6.7); Neutrophils Percent Auto 76.5 % (45.5-73.1); Platelet Count Result 129 k/mm3 (150-375); Red Blood Count 3.46 M/mm3 (4.6-6.20); Red Cell Distribution Width 13.7 % (11.5-14.5); White Blood Count 6.3 K/mm3 (4.5-10.0)
[2024-07-22 05:48] LABS: Alanine Aminotransferase 81 U/L (6-50); Albumin Level 2.8 g/dL (3.5-5.1); Alkaline Phosphatase 178 U/L (38-126); Anion Gap 8 mmol/L (4-12); Aspartate Amino Transferase 48 U/L (17-59); Bilirubin,Total 1.7 mg/dL (0.2-1.3); Blood Urea Nitrogen 14 mg/dL (9-20); Calcium 8.3 mg/dL (8.4-10.2); Carbon Dioxide 26 mmol/L (22-30); Chloride 98 mmol/L (98-107); Estimated CRCL calculation 115 ml/min; Estimated Glomerular Filt Rate > 60; Glucose 171 mg/dL (65-110); Magnesium 2.1 mg/dL (1.6-2.3); Potassium 3.8 mmol/L (3.4-5.0); Sodium 132 mmol/L (137-145)
[2024-07-22] MEDS: metroNIDAZOLE 500 MG TABLET PO ×3 (06:07→21:12)
[2024-07-22 07:18] LABS: Large Platelets Present; Platelet Estimate Decreased (Adequate)
[2024-07-22 07:19] LABS: Schistocytes None Seen
[2024-07-22 07:22] LABS: Glucose Point of Care 172 mg/dl (65-105)
[2024-07-22] MEDS: METOPROLOL SUCCINATE EXT REL 25 MG TABCR PO (09:15)
[2024-07-22] MEDS: levoFLOXacin 750 MG TABLET PO (09:15)
[2024-07-22] MEDS: EMPAGLIFLOZIN 25 MG TABLET PO (09:15)
[2024-07-22] MEDS: PANTOPRAZOLE 40 MG TABLET PO (09:16)
--- NOTE | 2024-07-22 11:06 | PM.IMPN ---
Progress Note: A&P Assessment and Plan (1) Acute cholecystitis: Code(s): K81.0 - Acute cholecystitis Status: Acute Plan Acute cholecystitis on PERC drainage of gall bladder Blood culture, continue Zosyn, changed to levaquin and Flagyl lactic acid resolved tolerating diet Gen surgery noted outpatient follow up for cholecystectomy. Elevated liver enzymes, resolving AST 80 from 593, ALT 121 from 315, Bilirubin 2.9 from 5.[address] AP negative for CBD dilatation MRCP MRCP showed acute cholecystitis and no CBD dilatation GI following RLL Pneumonia CT Chest showed RLL pneumonia F/u with blood culture Continue Levaquin adn Flagyl, total of 7 days Follow-up closely Type 2 diabetes Sliding scale insulin with Accu-Cheks Adjust clinical course Atrial fibrillation restart Anticoagulation and metoprolol CHF Titrate medication or clinical course Hypertension Title medication with clinical course DVT prophylaxis subQ Lovenox patient is a DNR Surrogate decision maker is . Subjective Date/time seen: 07/22/24 11:06 Interval history: Patient is evaluated at bedside. S/P PERC drainage. LFTS are improving. No CBD dilation. Currently on Levaquin and flagyl. Will wait on surgery recommendation in regards to interval cholecystectomy.Surgery cleared for discharge . Pending SNF placement Review of Systems Review of Systems: Unable to do review of systems due to Lethargy Exam Narrative: General: lethargic Eyes: EOMI, PERRLA ENNT External ears normal, Neck is supple, no masses, Respiratory systems: Clear to auscultation Cardiovascular S1, S2, normal rhythm, no murmur, rub, or gallop; no thrill or palpable murmurs on palpation. Gastrointestinal: soft, and non-distended abdomen with no masses; right upper quadrant tenderness resolving . BS present, Perc drain in place Skin: no rash, lesions, ulcerations, subcutaneous nodules or induration Musculoskeletal: no abnormality and no tenderness, normal ROM Neurologic: Alert and oriented x3, non focal Mental Status Exam: normal affect Objective Data Vital Signs Vital Signs: Vital Signs - 24 hr 07/21/24 11:52 07/21/24 12:00 07/21/24 14:00 Temperature 97.4 F L Pulse Rate 71 55 L 53 L Respiratory Rate 24 H Blood Pressure 133/64 Pulse Oximetry 98 Oxygen Delivery 07/21/24 12:00 07/21/24 14:05 07/21/24 15:16 Temperature Pulse Rate Respiratory Rate Blood Pressure Pulse Oximetry Oxygen Delivery Room Air Room Air Room Air 07/21/24 16:00 07/21/24 16:00 07/21/24 18:00 Temperature 97.7 F Pulse Rate 63 59 L 60 Respiratory Rate 20 Blood Pressure 147/67 H Pulse Oximetry 96 Oxygen Delivery 07/21/24 16:00 07/21/24 21:44 07/21/24 20:00 Temperature 97.6 F Pulse Rate 68 Respiratory Rate 20 Blood Pressure 141/68 H Pulse Oximetry 98 Oxygen Delivery Room Air Room Air 07/21/24 23:41 07/22/24 00:00 07/22/24 03:46 Temperature 97.7 F 97.8 F Pulse Rate 67 65 Respiratory Rate 20 20 Blood Pressure 141/68 H 151/63 H Pulse Oximetry 98 Oxygen Delivery Room Air 07/21/24 20:00 07/21/24 22:00 07/22/24 00:00 Temperature Pulse Rate 66 64 70 Respiratory Rate Blood Pressure Pulse Oximetry Oxygen Delivery 07/22/24 02:00 07/22/24 04:00 07/22/24 04:00 Temperature Pulse Rate 73 69 Respiratory Rate Blood Pressure Pulse Oximetry Oxygen Delivery Room Air 07/22/24 06:00 07/22/24 08:35 07/22/24 09:15 Temperature 97.8 F Pulse Rate 68 66 68 Respiratory Rate 18 Blood Pressure 145/62 H Pulse Oximetry 97 Oxygen Delivery 07/22/24 08:00 07/22/24 10:00 07/22/24 08:00 Temperature Pulse Rate 68 62 Respiratory Rate Blood Pressure Pulse Oximetry Oxygen Delivery Room Air Intake/Output Intake/Output: Intake & Output 07/19/24 07/20/24 07/21/24 07/22/24 23:59 2
[2024-07-22 12:17] LABS: Glucose Point of Care 152 mg/dl (65-105)
--- NOTE | 2024-07-22 15:19 | PM.PNGS ---
Progress Note: A&P Assessment and Plan (1) Acute cholecystitis: Code(s): K81.0 - Acute cholecystitis Status: Acute Assessment and Plan: Improving with decompression of the gallbladder with image-guided cholecystostomy tube placement. He is tolerating a diabetic diet without any issues. Will continue non operative management for the gallbladder at this time. Okay from a surgical standpoint to discharge the patient and transition him to oral antibiotics when medically stable. His is concerned about him being able to care for his cholecystostomy tube at home and is requesting possible intermediate placement on discharge. Will talk with care coordination about SNF options. He will need to be discharged with another 7-10 day course of oral antibiotics. We will then have him follow-up with Dr. Munoz in the next 1-2 weeks and eventually schedule him for a cholangiogram through the cholecystostomy tube in about 3 weeks prior to removal. We can discuss the options of an interval cholecystectomy as an outpatient in the next few weeks. (2) Transaminitis: Code(s): R74.01 - Elevation of levels of liver transaminase levels Status: Acute Assessment and Plan: Liver enzymes continue to trend down. MRCP showed no choledocholithiasis. Significant LFT elevation was likely related to the acute cholecystitis with passage of common bile duct stone. Plan I have discussed the patient's case and plan of care with Dr. Munoz. Subjective Subjective Date/Time Seen: 07/22/24 15:19 Patient reports: no new complaints, feels better, tolerating a regular diet and afebrile Interval history: Patient tolerating a diabetic diet. No acute issues overnight. No abdominal pain or nausea today. Exam Const: General: comfortable and no acute distress GI: Inspection: non-distended and other (Cholecystostomy tube with normal-appearing bilious drainage, no purulence ) GI Palp: Yes Soft to palpation, Yes Tenderness to palpation present (GI) (mild tenderness near the cholecystostomy tube), No Guarding due to palpation present (GI) and No Rebound tenderness present Auscultation: normal bowel sounds Objective Data Vital Signs Vital Signs: Vital Signs - 24 hr 07/21/24 16:00 07/21/24 16:07/21/24 18:00 Temperature 97.7 F Pulse Rate 63 59 L 60 Respiratory Rate 20 Blood Pressure 147/67 H Pulse Oximetry 96 Oxygen Delivery 07/21/24 16:00 07/21/24 21:44 07/21/24 20:00 Temperature 97.6 F Pulse Rate 68 Respiratory Rate 20 Blood Pressure 141/68 H Pulse Oximetry 98 Oxygen Delivery Room Air Room Air 07/21/24 23:41 07/22/24 00:00 07/22/24 03:46 Temperature 97.7 F 97.8 F Pulse Rate 67 65 Respiratory Rate 20 20 Blood Pressure 141/68 H 151/63 H Pulse Oximetry 98 Oxygen Delivery Room Air 07/21/24 20:00 07/21/24 22:00 07/22/24 00:00 Temperature Pulse Rate 66 64 70 Respiratory Rate Blood Pressure Pulse Oximetry Oxygen Delivery 07/22/24 02:00 07/22/24 04:00 07/22/24 04:00 Temperature Pulse Rate 73 69 Respiratory Rate Blood Pressure Pulse Oximetry Oxygen Delivery Room Air 07/22/24 06:00 07/22/24 08:35 07/22/24 09:15 Temperature 97.8 F Pulse Rate 68 66 68 Respiratory Rate 18 Blood Pressure 145/62 H Pulse Oximetry 97 Oxygen Delivery 07/22/24 08:00 07/22/24 10:00 07/22/24 08:00 Temperature Pulse Rate 68 62 Respiratory Rate Blood Pressure Pulse Oximetry Oxygen Delivery Room Air 07/22/24 11:37 07/22/24 12:00 07/22/24 12:00 Temperature 97.5 F L Pulse Rate 65 62 Respiratory Rate 18 Blood Pressure 125/72 Pulse Oximetry 98 Oxygen Delivery Room Air 07/22/24 14:00 Temperature Pulse Rate 68 Respiratory Rate Blood Pressure Pulse Oximetry Oxygen Delivery Intake/Output Intake/Output: Intake & Output 07/19/24 07/20/24 07/21/24 07/22/24 23:59 23:59 23:59 23:59 Intake Total 2277 259
[2024-07-22 16:30] LABS: Glucose Point of Care 181 mg/dl (65-105)
[2024-07-22] MEDS: RIVAROXABAN 20 MG TABLET PO (17:09)
[2024-07-22 20:48] LABS: Glucose Point of Care 150 mg/dl (65-105)
[2024-07-22] MEDS: ONDANSETRON INJ 4 MG/2 ML VIAL IV PUSH (21:54)
[2024-07-23] MEDS: metroNIDAZOLE 500 MG TABLET PO ×2 (05:10→11:57)
[2024-07-23 05:57] VITALS: BP 138/57; PULSE 58; RESP 24; TEMP 36.1; O2SAT 97
[2024-07-23 06:35] LABS: Hemoglobin 11.2 g/dL (14.0-18.0); Mean Corpuscular HGB Conc 32.9 g/dl (32-36); Mean Corpuscular Hemoglobin 32.9 pg (26-34); Mean Platelet Volume 11.7 fl (7.4-10.4); Platelet Count Result 156 k/mm3 (150-375); Red Cell Distribution Width 13.9 % (11.5-14.5)
[2024-07-23 06:45] LABS: Alanine Aminotransferase 59 U/L (6-50); Albumin Level 2.7 g/dL (3.5-5.1); Alkaline Phosphatase 157 U/L (38-126); Anion Gap 8 mmol/L (4-12); Aspartate Amino Transferase 34 U/L (17-59); Bilirubin,Total 1.3 mg/dL (0.2-1.3); Blood Urea Nitrogen 11 mg/dL (9-20); Calcium 8.6 mg/dL (8.4-10.2); Carbon Dioxide 26 mmol/L (22-30); Chloride 99 mmol/L (98-107); Estimated CRCL calculation 86 ml/min; Estimated Glomerular Filt Rate > 60; Glucose 148 mg/dL (65-110); Potassium 3.7 mmol/L (3.4-5.0); Sodium 133 mmol/L (137-145)
[2024-07-23 07:43] LABS: Glucose Point of Care 154 mg/dl (65-105)
[2024-07-23] MEDS: METOPROLOL SUCCINATE EXT REL 25 MG TABCR PO (07:52)
[2024-07-23] MEDS: PANTOPRAZOLE 40 MG TABLET PO (07:52)
[2024-07-23] MEDS: EMPAGLIFLOZIN 25 MG TABLET PO (07:52)
[2024-07-23] MEDS: levoFLOXacin 750 MG TABLET PO (07:52)
[2024-07-23 11:29] LABS: Glucose Point of Care 151 mg/dl (65-105)
--- NOTE | 2024-07-23 12:07 | PM.DS ---
DS: Admitting Diagnosis Discharge Date 07/23/2024 Admitting Diagnosis Acute cholecystitis secondary to cholelithiasis DS: Discharge Diagnosis Discharge Diagnosis (1) Acute cholecystitis: Code(s): K81.0 - Acute cholecystitis Status: Acute DS: Summary Hospital Course Hospital Course: Patient is a 84-year-old gentleman who was transferred from outside hospital to [facility] because diagnosis of acute cholecystitis secondary cholelithiasis and need for higher level of surgical evaluation and care. Patient apparently brought to the emergency room because he was having weakness and worsening abdominal pain. Imaging at the outside hospital with a CT scan seemed to show acute cholecystitis secondary to cholelithiasis. There is stranding and pericholecystic inflammation. Patient was transferred [facility] and accepted by the hospitalist service. Patient had elevated LFTs and an elevated total bilirubin of 5.2. CT scan of the chest was done [facility] which showed dilated gallbladder with thickening of the gallbladder wall and pericholecystic stranding the tissues around the gallbladder. The patient is in general poor health. He does have some dementia but does answer some questions. He is able to tell that he does have pain in the right upper quadrant of the abdomen. Patient is a DNR. He takes Xarelto . He has insulin-dependent diabetes mellitus and hypertension and atrial fibrillation. MRCP was on 07/20 : IMPRESSION: 1. Cholelithiasis and diffuse gallbladder wall thickening consistent with acute cholecystitis with decrease in the degree of gallbladder distention following interval cholecystostomy tube placement. 2. No intra-axial hepatic Doppler evaluation or evident choledocholithiasis. 3. Small right and very small left pleural effusions. Surgery was consulted who performed US perc cholecystostomy. IMPRESSION: 1. Successful ultrasound-guided cholecystostomy tube placement. 2. 50 mL bile was sent for aerobic, anaerobic, and fungal cultures. 3. The catheter will be managed by Dr. Munoz. A catheter cholangiogram may be performed not less than 48 hours after tube placement if clinically indicated to assess cystic duct patency. If cholecystectomy is not eventually performed and the infectious episode has resolved, the tube may be removed over a guidewire, preferably not less than 3 weeks after placement to allow time for a mature catheter tract to form to prevent bile leakage and peritonitis. GI was consulted: Since normal bile duct decided no need of ERCP.Abnormal LFTS are trending down. Patient was improving with the decompression of the gallbladder with the image guided cholecystostomy tube placement. As per surgery patient is stable to discharge and follow up with them for interval cholecystectomy. Patient will be discharge to SNF. Patient has remaining 1 dose of levofloxacin for tomorrow and and 4 doses of metronidazole which has to be completed tomorrow. Please refer to the discharge instruction about taking care of cholecystostomy tube care. Status at Discharge Cognitive/behavioral status at discharge: Stable Time Spent with Patient Time attestation: Total time spent providing and/or coordinating discharge services: 45 minute Exam Narrative: General: lethargic Eyes: EOMI, PERRLA ENNT External ears normal, Neck is supple, no masses, Respiratory systems: Clear to auscultation Cardiovascular S1, S2, normal rhythm, no murmur, rub, or gallop; no thrill or palpable murmurs on palpation. Gastrointestinal: soft, and non-distended abdomen with no masses; right upper quadrant tenderness resolving . BS present, Perc drain in place Skin: no rash, lesions, ulcerations, subcutaneous nodules or induration Musculoskeletal: no abnormality and no tenderness, normal ROM Neurologic: Alert and oriented x3, non focal Mental Status Exam: normal affect DS: Data Data Completed and Pending Labs on da
[2024-07-23 12:48] LABS: SARS-CoV-2 RNA PCR Negative (Negative)
[2024-07-23 14:00] VITALS: BP 120/59; PULSE 55; RESP 14; TEMP 35.7; O2SAT 98
== END 2024-07-23 15:15 | DRG 444 ==
LOC: ANHIMU 07-19 10:20 → ANH3MEDSUR 07-23 11:38 → ANHIMU 07-24 15:04
PROVIDERS: Internal Medicine; Admitting Provider Internal Medicine; PCP Family Medicine; Visit Provider General Practice
DX: K80.00 Calculus of gallbladder with acute cholecystitis without obstruction (principal); J18.9 Pneumonia, unspecified organism; E11.9 Type 2 diabetes mellitus without complications; F03.90 Unspecified dementia, unspecified severity, without behavioral disturbance, psychotic disturbance, mood disturbance, and anxiety; I48.91 Unspecified atrial fibrillation; I11.0 Hypertensive heart disease with heart failure; I50.9 Heart failure, unspecified; R74.01 Elevation of levels of liver transaminase levels; Z11.52 Encounter for screening for COVID-19; Z79.4 Long term (current) use of insulin; Z79.01 Long term (current) use of anticoagulants; Z66 Do not resuscitate; Z28.21 Immunization not carried out because of patient refusal; Z79.84 Long term (current) use of oral hypoglycemic drugs
CPT/HCPCS: 36415; 47490; 71045; 71250; 74183; 76376; 76705; 80053; 82948; 83605; 83690; 83735; 83880; 84484; 85025; 85027; 85055; 85610; 85730; 86850; 86900; 86901; 87040; 87070; 87075; 87205; 87635; 87641; 93306; 97110; 97161; 97166; 97530; A9270; A9577; C1729; G0378; G0379; J2270; J2405; J2543; J7030

== ENCOUNTER 2024-08-28 08:34 | Outpatient (CLI) | payer MEDICARE, SELFPAY ==
--- NOTE | ~2024-08-28 | XR_ITS ---
EXAMINATION: XR catheter cholangiogram DATE: 08/28/2024 09:49 INDICATION: Acute cholecystitis. TECHNIQUE: I performed fluoroscopy of the abdomen while injecting Omnipaque 350 contrast into the per cutaneous cholecystostomy tube. The total number of images was 4. The fluoroscopy exposure time was 0 .1 minutes. COMPARISON: MRCP 07/20/2024 FINDINGS: The catheter is occluded. Contrast tracks along the catheter retrograde to the skin. IMPRESSION: 1. Occluded cholecystostomy tube. Reviewed, dictated and finalized at location A. [employer]
== END 2024-08-28 08:35 | disposition home or self-care (01) ==
PROVIDERS: PCP Internal Medicine; Visit Provider Surgery
DX: T85.590A Other mechanical complication of bile duct prosthesis, initial encounter (principal); K81.0 Acute cholecystitis
CPT/HCPCS: 47531